=== PATIENT | male | born 1990 | race Caucasian/White ===

== ENCOUNTER 2024-05-25 00:50 | Emergency (ER) | payer BC, SELFPAY ==
[2024-05-25 00:51] VITALS: BP 164/102; PULSE 107; RESP 16; TEMP 36.9; O2SAT 97; BMI 33.1
[2024-05-25 00:57] VITALS: BP 164/102; PULSE 102; RESP 16; TEMP 36.8; O2SAT 97
--- NOTE | 2024-05-25 01:36 | CT_ITS ---
STUDY: CT ABDOMEN AND PELVIS WITH CONTRAST - URINARY TRACT REASON FOR EXAM: Male, 34 years old. left flank pain RADIATION DOSAGE (If Supplied By Facility): CTDIvol = ( 22.55 ) mGy, DLP = ( 1442.69 ) mGycm TECHNIQUE: IV 100mL Isovue-370 was administered. Transaxial images were obtained from the dome of the diaphragm to the symphysis pubis in the arterial, nephrographic and excretory phases. Multiplanar coronal and sagittal images were reformatted. The protocol utilizes one or more of the following dose reduction techniques: automated exposure control, adjustment of mA and/or kV according to patient size,and/or use of iterative reconstruction technique. COMPARISON: No relevant prior comparison study available FINDINGS: The visualized lung bases are unremarkable. The visualized portions of the heart are within normal limits. There is decreased attenuation of the liver consistent with steatosis. Normal gallbladder and extrahepatic biliary system. Normal spleen. Normal pancreas. Normal bilateral adrenal glands. Normal visualized stomach. Normal small intestine. Normal colon. The appendix is visualized and appears normal. Normal abdominal aorta. No retroperitoneal adenopathy. Normal right kidney. Normal left kidney. Normal urinary bladder. Normal abdominal wall. Normal osseous structures. CT/Abdomen/Pelvis W IV Cont ONLY IMPRESSION: There is decreased attenuation of the liver consistent with steatosis. Electronically Signed: Camille Gray MD at 2:40 EST ,
[2024-05-25] MEDS: Ondansetron 4 MG/2 ML Vial IV (01:47)
[2024-05-25] MEDS: morphine 8 MG/ML Syringe IV (01:47)
[2024-05-25 01:48] LABS: Absolute Lymphocyte Count 1.82 X10^3/uL (0.83-4.51); Absolute Neutrophil Count 4.5 X10^3/uL (2.0-7.7); Basophil# 0.09 X10^3/uL; Basophil% 1.2 % (0-1); Eosinophil# 0.22 X10^3/uL; Eosinophils% 3.1 % (0-5); Hematocrit 47.1 % (40-54); Hemoglobin 15.8 g/dL (13.0-16.5); Lymphocyte # 1.82 X10^3/ul (0.83-4.51); Lymphocyte % 25.2 % (19-41); Mean Corp Hgb Conc 33.5 g/dL (32-36); Mean Corpuscular Hgb 29.5 pg (27.0-32.0); Mean Platelet Vol. 9.4 fl (6.2-12.0); Monocyte# 0.56 X10^3/uL; Monocyte% 7.8 % (0-10); NRBC Flagged by Analyzer 0 % (0-5); Neutrophil % 62.4 % (47-70); Platelet Count 295 K/mm3 (150-450); RBC Distribution Width CV 13.2 % (11.6-14.6); RBC Distribution Width SD 42.8 fl (35.1-43.9); Red Blood Count 5.35 M/mm3 (4.6-6.2); White Blood Count 7.2 K/mm3 (4.4-11.0)
[2024-05-25 02:00] VITALS: BP 143/86; PULSE 88; RESP 18; TEMP 36.8; O2SAT 99
[2024-05-25 02:25] LABS: Anion Gap 8 (5-15); BUN 17 mg/dL (7-18); BUN/Creat Ratio 17.4 RATIO (10-20); Calcium,Total 9.4 mg/dL (8.5-10.1); Chloride 104 mmol/L (98-107); Creatinine, Serum 0.98 mg/dL (0.70-1.30); EST Glomerular Filtration Rate 93 mL/min (>60); Est Glom Filt Rate - Afr Amer 113 mL/min (>60); Estimated Creatinine Clearance 148.45 ml/min; Glucose 128 mg/dL (74-106); Potassium 4.3 mmol/L (3.5-5.1); Sodium Level 137 mmol/L (136-145)
[2024-05-25 03:00] VITALS: BP 137/77; PULSE 74; RESP 18; TEMP 36.9; O2SAT 94
--- NOTE | 2024-05-25 03:12 | EDS_ITS ---
HPI History of Present Illness Chief Complaint: Abd Pain Informant: patient Narrative Narrative: Patient is a 34-year-old male with reported history of von Willebrand's disease presenting with worsening left flank pain. Patient states that 3 to 4 weeks ago he was coughing particularly bad and was treated with a course of antibiotics for pneumonia. Around the time he finished the antibiotics he had a particularly bad coughing episode and felt like he pulled a muscle in his left side/flank. He has had significant pain in that area. He was prescribed a cough medicine as well as muscle relaxer. Does not recall the name of the muscle relaxer. He states that the pain had been doing okay but then it started to worsen again about a week ago. Tonight he went to take the trash out and use his right hand to open up the trash lid in his left hand to put the bag in the trash can. He suddenly had severe pain again in his left back/flank area. States the pain was so bad that he could not even walk or stand up to use the restroom. Notes he saturated disc in the past but they never felt this bad. He did go to [facility] emergency room about a week ago to make sure he did not have any bleeding or hematoma given his history of von Willebrand's. He had a CT scan which he states was negative.He did not take anything for pain prior to arrival. He notes that at 1 point he did take ibuprofen which he is not supposed to take with his von Willebrand but it did help a lot with his pain. Also reports he is very physical job. [facility] Medical History Kidney stone Hypertension Acquired von Willebrand disease Home Medications ?Medication ?Instructions ?Recorded ?Last Taken ?Type dextroamphetamine-amphetamine ER 30 mg PO DAILY 05/25/24 Unknown History 30 mg 24hr capsule,extend release (Adderall XR) diazepam 5 mg tablet (Valium) 5 mg PO TID PRN muscle spasm #12 05/25/24 Unknown Rx tabs prednisone 20 mg tablet 40 mg (2 x 20 mg) PO DAILY #8 tabs 05/25/24 Unknown Rx Allergy/AdvReac Type Severity Reaction Status Date / Time Penicillins AdvReac Rash Verified 05/25/24 00:52 Social History Smoking Status: Never smoker ROS ROS ED Constitutional Constitutional ED: Denies chills or fever(s) Cardiovascular Cardiovascular: Denies chest pain Respiratory/Chest Respiratory/Chest: Reports cough; Denies dyspnea Gastrointestinal Gastrointestinal: Reports abdominal pain; Denies nausea or vomiting Genitourinary Genitourinary ED: Denies dysuria or hematuria Musculoskeletal Musculoskeletal: Reports back pain Integumentary Denies rash Neurologic Neurologic: Denies paresthesias or weakness Hematologic/Lymphatic Hematologic/Lymphatic: Reports as per HPI, easy bleeding and easy bruising EXAM Physical Exam Const Vital Signs: 05/25/24 00:51 05/25/24 00:57 05/25/24 02:00 Temperature 98.5 F 98.3 F 98.3 F Temperature Source Oral Oral Oral Pulse Rate 107 H 102 H 88 Respiratory Rate 16 16 18 Blood Pressure 164/102 H 164/102 H 143/86 H Blood Pressure Mean 122 122 105 Pulse Ox 97 97 99 Oxygen Delivery Method Room Air Room Air Room Air 05/25/24 03:00 05/25/24 03:47 05/25/24 04:00 Temperature 98.5 F 98.5 F 98.5 F Temperature Source Oral Oral Pulse Rate 74 87 88 Respiratory Rate 18 18 18 Blood Pressure 137/77 H 140/80 H 136/80 H Blood Pressure Mean 97 100 98 Pulse Ox 94 98 97 Oxygen Delivery Method Room Air Room Air Positive well nourished and well developed Constitutional Narrative: Uncomfortable appearing General Appearance ED: well developed HEENT Reports moist mucous membranes Eyes PERRL Neck supple and no JVD Chest Wall inspection of chest normal and palpation of chest normal Resp normal respiratory effort and clear to auscultation bilaterally Cardio regular rate and regular rhythm GI normal to inspection, nondistended, normoactive bowel sounds GI Narrative: Mild tenderness palpation over the left abdomen Back/Spine no CVA tenderness Back/Spine Narrative: Left lumbar paraspinal tenderness to palpation, spasm appreciated Thoracic Spine / Upper Back: Negative for thoracic spinal tenderness Lumbar Spine / Lower Back: Negative for lumbar spinal tenderness Extremity normal to inspection General Extremety ED: Negative for edema or tenderness General Extremity: Negative for edema Neuro oriented x3 and no sensory deficits noted Neuro Narrative: Ambulates with a steady gait. Bilateral straight leg test exacerbates left low back pain Sensorium / Orientation: alert Motor Exam: strength 5/5 throughout; Negative for general weakness Skin no rashes or lesions noted and no wounds MDM MDM MDM Narrative Medical decision making narrative: Patient's evaluated for acute worsening left flank pain it has been going on for the past month. Seems to be more muscle skeletal however patient is having significant pain. Does have a history of kidney stones as well as herniated disc. Patient is equal pulses in the extremities and no focal neurologic deficits. Blood pressure only minimally elevated upon arrival at 164/102 but does improved to 143/86. Low suspicion for aortic dissection. Differential also includes renal colic, muscle spasms, hematoma given the patient's history of von Willebrand disease and lumbar nerve pain. Patient given IV morphine and Zofran initially for symptom control with improvement. CBC, CMP and urinalysis normal. CT abdomen pelvis shows findings distant with of liver steatosis but no acute process. Repeat evaluation patient is pretty reproducible tenderness and spasm of the left lumbar area. No midline tenderness. Is not any focal neurologic deficits. Suspect this is muscle skeletal likely from spasms. As patient is not supposed to be on NSAID therapy because of his von Willebrand's we will place him on a course of prednisone to hopefully help with inflammation and also a short course of Valium for spasms and better pain control. Patient is encouraged follow-up with primary care doctor as he might require further medication adjustments, physical therapy or possible more advanced imaging. He is given return precautions. Discharged home in stable improved condition. Lab Data Attestation: I reviewed the patient's lab results. Labs: Laboratory Results - last 24 hr 05/25/24 05/25/24 00:57 03:06 WBC 7.2 RBC 5.35 Hgb 15.8 Hct 47.1 MCV 88.0 MCH 29.5 MCHC 33.5 RDW Std Deviation 42.8 RDW Coeff of Jan 13.2 Plt Count 295 MPV 9.4 Immature Gran % (Auto) 0.300 Neut % (Auto) 62.4 Lymph % (Auto) 25.2 [place] % (Auto) 7.8 Eos % (Auto) 3.1 Baso % (Auto) 1.2 H Absolute Neuts (auto) 4.5 Absolute Lymphs (auto) 1.82 Nucleated RBC % 0 Sodium 137 Potassium 4.3 Chloride 104 Carbon Dioxide 25.0 Anion Gap 8 BUN 17 Creatinine 0.98 Estim Creat Clear Calc 148.45 Est GFR (MDRD) Af Amer 113 Est GFR (MDRD) Non-Af 93 BUN/Creatinine Ratio 17.4 Glucose 128 H Calcium 9.4 Urine Color Yellow Urine Clarity Clear Urine pH 6.5 Ur Specific [place] 1.010 Urine Protein Negative Urine Glucose (UA) Normal Urine Ketones Negative Urine Occult Blood Negative Urine Nitrite Negative Urine Bilirubin Negative Urine Urobilinogen Normal Ur Leukocyte Esterase Negative Urine RBC 0 SEEN Urine WBC 0 SEEN Ur Squamous Epith Cells 0 SEEN Urine Bacteria 0 SEEN Urine Mucus 0 SEEN Radiography Diagnostic Testing: Clinical Impression(s) from Imaging Studies Abdomen/Pelvis CT 05/25/24 01:36 IMPRESSION: There is decreased attenuation of the liver consistent with steatosis. Electronically Signed: Camille Gray MD at 2:40 EST , Discharge Plan Triage Chief Complaint: Abd Pain ED Provider: Ngozi Nevarze Dx/Rx/DC Orders Clinical Impression: Pain in left lumbar region of back, Muscle spasm Instructions: ED Back Spasm, No Trauma Prescriptions: New prednisone 20 mg tablet 40 mg PO DAILY Qty: 8 0RF diazepam [Valium] 5 mg tablet 5 mg PO TID PRN (Reason: muscle spasm) Qty: 12 0RF No Action dextroamphetamine-amphetamine [Adderall XR] 30 mg capsule,extended release 24hr 30 mg PO DAILY Primary Care Provider: Valarie Gaitan Referrals: Valarie Gaitan, [Primary Care Provider] - Activity Restrictions/Additional Instructions: Mild to take Tylenol for pain. Use heat to your back. Follow-up with your primary care doctor as you might require further imaging or physical therapy. Do not drive or operate heavy machinery while taking Valium (muscle relaxer). Do not take the other muscle relaxer with it. Print Language: Latvian Disposition Disposition: Home, Self Care Discharge Date/Time: 05/25/24 04:18
[2024-05-25 03:15] LABS: Glucose, Dipstick Normal (Normal); Ketone-Dipstick Negative (Negative); Leukocyte Esterase-Dipstick Negative /ul (Negative); Nitrite-Dipstick Negative (Negative); Occult Blood-Urine Negative /ul (Negative); Protein-Dipstick Negative (Negative); Urine Bilirubin Dipstick Negative (Negative); Urine Urobilinogen Normal (Normal); Urine pH 6.5 (5.0 - 8.0)
[2024-05-25 03:16] LABS: Bacteria 0 SEEN /hpf (None Seen); Mucous, Urine 0 SEEN /hpf (<or=2+); Red Blood Cells-Urine 0 SEEN /hpf (0-5); Squamous Epithelial Cells - UA 0 SEEN /hpf (0-5); White Blood Cells 0 SEEN /hpf (0-5)
[2024-05-25 03:22] LABS: Color, Urine Yellow (Yellow); Urine Clarity Clear (Clear)
[2024-05-25 03:47] VITALS: BP 140/80; PULSE 87; RESP 18; TEMP 36.9; O2SAT 98
[2024-05-25 04:00] VITALS: BP 136/80; PULSE 88; RESP 18; TEMP 36.9; O2SAT 97
[2024-05-25] MEDS: predniSONE 20 MG Tablet 60 MG PO (04:13)
[2024-05-25] MEDS: diazePAM 5 MG Tablet PO (04:13)
== END 2024-05-25 04:18 | disposition home or self-care (01) ==
PROVIDERS: Emergency Provider Emergency Medicine; PCP Student in an Organized Health Care Education/Training Program; Visit Provider Emergency Medicine
DX: M54.50 Low back pain, unspecified (principal); D68.00 Von Willebrand disease, unspecified; M62.830 Muscle spasm of back; K76.0 Fatty (change of) liver, not elsewhere classified; Z88.0 Allergy status to penicillin; Z87.442 Personal history of urinary calculi
CPT/HCPCS: 74177; 80048; 81001; 85025; 96374; 96375; 99285; Q9967; A4216; J2405